=== PATIENT | male | born 1965 | race Caucasian/White ===

== ENCOUNTER 2016-12-07 02:36 | Emergency (ER) | payer BC ==
[~2016-12-07] VITALS: Ht 188 cm; Wt 109.8 kg
[2016-12-07 03:15] LABS: POINT-OF-CARE METER ID UU14100415
[2016-12-07 03:41] LABS: EOSINOPHIL COUNT 0.1 K/uL (0-0.3); HEMATOCRIT 42.9 % (38.0-50.0); IMMATURE GRANULOCYTE (%) 0.3 % (0.0-0.7); INSTRUMENT ABS NEUTROPHIL CT 5.2 K/uL; LYMPHOCYTE COUNT 1.1 K/uL (1.0-2.8); MCHC 35.2 G/DL (30.0-36.0); MCV 93.7 FL (86-99); MEAN PLAT.VOLUME 9.4 uM^3 (9.0-12.4); MONOCYTE (%) 11.3 % (3-12); MONOCYTE COUNT 0.8 K/uL (0-0.8); NEUTROPHIL (%) 71.2 % (45-76); NEUTROPHIL COUNT 5.2 K/uL (1.8-6.4); PLATELET COUNT 167 K/uL (156-360); RBC DIS.WIDTH-CV 12.9 % (11.8-14.6); RBC DIS.WIDTH-SD 44.5 % (39-53); RED BLOOD COUNT 4.58 M/uL (4.00-5.50); WHITE BLOOD COUNT 7.3 K/uL (4.1-10.2)
[2016-12-07 03:53] LABS: CHLORIDE 106 mEq/L (99-109); POTASSIUM 3.9 mEq/L (3.7-5.4); SODIUM 142 mEq/L (136-147)
[2016-12-07 03:54] LABS: POINT-OF-CARE METER ID UU14100415
[2016-12-07 03:54] LABS: GLUCOSE 135 mg/dL (70-99)
[2016-12-07 03:56] LABS: ANION GAP 16 MEQ/L (2-14)
[2016-12-07 03:58] LABS: GFR ESTIMATE (CALCULATED) > 59 mL/min/; SERUM ETHYL ALCOHOL 80 mg/dL
[2016-12-07 03:59] LABS: UREA NITROGEN (BUN) 14 mg/dL (9-23)
[2016-12-07 05:24] VITALS: BP 112/80
[2016-12-07] MEDS ORDERED: TRESIBA FL200 UNIT/1 SC (05:25)
== END 2016-12-07 05:26 | disposition home or self-care (01) ==
LOC: EME → EDBD 02:36 → EME 05:26
PROVIDERS: Emergency Medicine
DX: E11.649 Type 2 diabetes mellitus with hypoglycemia without coma (principal); T68.XXXA Hypothermia, initial encounter; F10.129 Alcohol abuse with intoxication, unspecified; Y90.4 Blood alcohol level of 80-99 mg/100 ml; I10 Essential (primary) hypertension; E78.5 Hyperlipidemia, unspecified; F17.200 Nicotine dependence, unspecified, uncomplicated
CPT/HCPCS: 71010; 80048; 82948; 85025; 93005; 99281; 99284; G0480